=== PATIENT | male | born 2000 | race Caucasian/White ===

== ENCOUNTER 2020-11-23 15:33 | Emergency (ER) | payer SELFPAY ==
[2020-11-23 16:26] LABS: HEMOGLOBIN 15.4 gm/dl (14.0-17.5); RED BLOOD COUNT 5.23 M/UL (4.20-5.50); WHITE BLOOD COUNT 12.3 K/UL (4.5-11.0)
[2020-11-23 16:55] LABS: BUN/CREATININE RATIO 9 (0-10)
== END 2020-11-23 17:15 | disposition home or self-care (01) ==
LOC: ER1 15:33
PROVIDERS: Emergency Medicine
DX: T40.601A Poisoning by unspecified narcotics, accidental (unintentional), initial encounter (principal); F19.10 Other psychoactive substance abuse, uncomplicated
CPT/HCPCS: 80053; 82550; 82553; 83735; 84484; 85025; 99284; G0480; J7030